=== PATIENT | male | born 1950 | race Caucasian/White ===

== ENCOUNTER → 2018-05-06 15:40 | Outpatient (CLI) | payer MEDICARE, SELFPAY ==
[2018-05-06 18:06] LABS: PSA,Total - Annual Screen 2.49 ng/mL (0.00-4.00)
== END ==
PROVIDERS: Family Provider Family Medicine; PCP Family Medicine; Visit Provider Family Medicine
DX: Z12.5 Encounter for screening for malignant neoplasm of prostate (principal)
CPT/HCPCS: 36415; 84153; G0103

== ENCOUNTER → 2019-08-10 16:14 | Outpatient (CLI) | payer MEDICARE, SELFPAY ==
[2019-08-10 17:27] LABS: Absolute Lymphocyte Count 1.09 X10^3/uL (0.83-4.51); Basophil# 0.06 X10^3/uL; Basophil% 1.1 % (0-1); Eosinophil# 0.11 X10^3/uL; Hematocrit 37.1 % (40-54); Hemoglobin 12.6 g/dL (13.0-16.5); Lymphocyte # 1.09 X10^3/ul (4.0); Lymphocyte % 19.3 % (19-41); Mean Corpuscular Hgb 31.2 pg (27.0-32.0); Mean Corpuscular Volume 91.8 fL (80-94); Mean Platelet Vol. 10.7 fl (6.2-12.0); Monocyte% 7.1 % (0-10); NRBC Flagged by Analyzer 0 % (0-5); Neutrophil # 3.95 X10^3/uL (2.7-7.7); Platelet Count 173 K/mm3 (150-450); RBC Distribution Width CV 14.4 % (11.6-14.6); RBC Distribution Width SD 48.8 fl (35.1-43.9); Red Blood Count 4.04 M/mm3 (4.6-6.2); White Blood Count 5.6 K/mm3 (4.4-11.0)
[2019-08-10 18:15] LABS: ALB/GLOB Ratio 1.1 RATIO (0.9-2.4); AST(SGOT) 18 U/L (15-37); Alanine Aminotransfer ALT/SGPT 24 U/L (16-61); Albumin, Serum 3.6 g/dL (3.2-5.0); Alkaline Phosphatase 50 U/L (45-117); Anion Gap 5 (5-15); BUN 16 mg/dL (7-18); BUN/Creat Ratio 16.7 RATIO (10-20); Calcium,Total 8.8 mg/dL (8.5-10.1); Chloride 106 mmol/L (98-107); Cholesterol 172 mg/dL (200); Creatinine, Serum 0.96 mg/dL (0.70-1.30); EST Glomerular Filtration Rate 83 mL/min (>60); Est Glom Filt Rate - Afr Amer 101 mL/min (>60); Globulin 3.4 g/dL (2.2-4.2); Glucose 79 mg/dL (74-106); High Density Lipoprotein 48 mg/dL; PSA,Total - Annual Screen 1.57 ng/mL (0.00-4.00); Potassium 3.6 mmol/L (3.5-5.1); Sodium Level 141 mmol/L (136-145); Thyroid Stim Hormone (TSH) 6.05 uIU/mL (0.358-3.74); Triglycerides 102 mg/dL; Very Low Density Lipoprotein 20 mg/dL (5-40)
== END ==
PROVIDERS: Family Provider Family Medicine; PCP Family Medicine; Referring Provider Family Medicine; Visit Provider Family Medicine
DX: Z00.00 Encounter for general adult medical examination without abnormal findings (principal); Z12.5 Encounter for screening for malignant neoplasm of prostate
CPT/HCPCS: 36415; 80053; 80061; 84153; 84443; 85025; G0103

== ENCOUNTER → 2019-08-16 15:56 | Outpatient (CLI) | payer MEDICARE, SELFPAY ==
[2019-08-16 17:44] LABS: Vitamin B12 431 pg/mL (211-911)
[2019-08-16 17:53] LABS: Ferritin 276 ng/mL (26-388); Iron 52 ug/dL (65-175); Iron Binding Capacity,Total 276 ug/dL (250-450); PERCENT IRON SATURATION 18.8 % (15.0-55.0); T4 Free Direct 0.86 ng/dL (0.76-1.46)
[2019-08-20 11:08] LABS: Anti-Thyroglobulin AB < 1.0 IU/mL (0.0-0.9); Thyroglobulin, Serum Qt. 7.6 ng/mL (1.4-29.2); Thyroid Peroxidase AB 8 IU/mL (0-34)
== END ==
PROVIDERS: Family Provider Family Medicine; PCP Family Medicine; Referring Provider Family Medicine; Visit Provider Family Medicine
DX: D64.9 Anemia, unspecified (principal); R79.89 Other specified abnormal findings of blood chemistry
CPT/HCPCS: 36415; 82607; 82728; 82746; 83540; 83550; 84432; 84439; 86376; 86800

== ENCOUNTER → 2019-10-15 09:38 | Outpatient (CLI) | payer MEDICARE, SELFPAY ==
[2019-10-15 12:08] LABS: Absolute Neutrophil Count 3.6 X10^3/uL (2.0-7.7); Basophil# 0.05 X10^3/uL; Eosinophil# 0.05 X10^3/uL; Hematocrit 38.9 % (40-54); Hemoglobin 13.1 g/dL (13.0-16.5); Mean Corp Hgb Conc 33.7 g/dL (32-36); Mean Corpuscular Hgb 31.3 pg (27.0-32.0); Mean Corpuscular Volume 92.8 fL (80-94); Mean Platelet Vol. 10.7 fl (6.2-12.0); Monocyte# 0.44 X10^3/uL; Monocyte% 8.8 % (0-10); NRBC Flagged by Analyzer 0 % (0-5); Neutrophil # 3.61 X10^3/uL (2.7-7.7); Neutrophil % 72.2 % (47-70); Platelet Count 173 K/mm3 (150-450); RBC Distribution Width CV 14.9 % (11.6-14.6); RBC Distribution Width SD 50.6 fl (35.1-43.9); Red Blood Count 4.19 M/mm3 (4.6-6.2)
[2019-10-15 12:26] LABS: Ferritin 247 ng/mL (26-388); Iron 70 ug/dL (65-175); Iron Binding Capacity,Total 269 ug/dL (250-450)
== END ==
PROVIDERS: Family Provider Family Medicine; PCP Family Medicine; Referring Provider Family Medicine; Visit Provider Family Medicine
DX: E61.1 Iron deficiency (principal)
CPT/HCPCS: 36415; 82728; 83540; 83550; 85025

== ENCOUNTER → 2020-01-04 10:17 | Outpatient (CLI) | payer MEDICARE, SELFPAY ==
[2020-01-04 12:32] LABS: Absolute Lymphocyte Count 0.69 X10^3/uL (0.83-4.51); Absolute Neutrophil Count 3.6 X10^3/uL (2.0-7.7); Basophil# 0.05 X10^3/uL; Eosinophil# 0.09 X10^3/uL; Eosinophils% 1.9 % (0-5); Hematocrit 39.2 % (40-54); Hemoglobin 13.1 g/dL (13.0-16.5); Lymphocyte # 0.69 X10^3/ul (4.0); Lymphocyte % 14.3 % (19-41); Mean Corp Hgb Conc 33.4 g/dL (32-36); Mean Corpuscular Hgb 31.6 pg (27.0-32.0); Mean Corpuscular Volume 94.7 fL (80-94); Mean Platelet Vol. 10.7 fl (6.2-12.0); Monocyte% 8.3 % (0-10); NRBC Flagged by Analyzer 0 % (0-5); Neutrophil # 3.58 X10^3/uL (2.7-7.7); Neutrophil % 73.9 % (47-70); Platelet Count 178 K/mm3 (150-450); RBC Distribution Width CV 14.7 % (11.6-14.6); Red Blood Count 4.14 M/mm3 (4.6-6.2); White Blood Count 4.8 K/mm3 (4.4-11.0)
[2020-01-04 12:50] LABS: Ferritin 255 ng/mL (26-388); Iron 87 ug/dL (65-175); Iron Binding Capacity,Total 266 ug/dL (250-450)
== END ==
PROVIDERS: PCP Family Medicine; Visit Provider Family Medicine
DX: E61.1 Iron deficiency (principal)
CPT/HCPCS: 36415; 82728; 83540; 83550; 85025

== ENCOUNTER → 2020-08-11 16:14 | Outpatient (CLI) | payer MEDICARE, SELFPAY ==
[2020-08-11 18:34] LABS: PSA,Total - Annual Screen 1.87 ng/mL (0.00-4.00)
== END ==
PROVIDERS: PCP Family Medicine; Referring Provider Family Medicine; Visit Provider Family Medicine
DX: Z12.5 Encounter for screening for malignant neoplasm of prostate (principal)
CPT/HCPCS: 36415; 84153; G0103

== ENCOUNTER → 2020-12-13 13:57 | Outpatient (CLI) | payer MEDICARE, SELFPAY | PROVIDERS: PCP Family Medicine; Referring Provider Family Medicine; Visit Provider Family Medicine | DX: R19.7 Diarrhea, unspecified (principal) | CPT/HCPCS: 87493; 87506 ==

== ENCOUNTER → 2020-12-18 11:25 | Outpatient (CLI) | payer MEDICARE, SELFPAY ==
[2020-12-18 15:20] LABS: Absolute Lymphocyte Count 1.37 X10^3/uL (0.83-4.51); Absolute Neutrophil Count 4.4 X10^3/uL (2.0-7.7); Basophil# 0.11 X10^3/uL; Basophil% 1.7 % (0-1); Eosinophil# 0.03 X10^3/uL; Eosinophils% 0.5 % (0-5); Hematocrit 38.8 % (40-54); Hemoglobin 13.3 g/dL (13.0-16.5); Lymphocyte # 1.37 X10^3/ul (4.0); Lymphocyte % 21.3 % (19-41); Mean Corp Hgb Conc 34.3 g/dL (32-36); Mean Corpuscular Hgb 32.4 pg (27.0-32.0); Mean Corpuscular Volume 94.6 fL (80-94); Mean Platelet Vol. 10.8 fl (6.2-12.0); Monocyte# 0.45 X10^3/uL; NRBC Flagged by Analyzer 0 % (0-5); Neutrophil # 4.37 X10^3/uL (2.7-7.7); Neutrophil % 67.8 % (47-70); POSITIVE MORPHOLOGY YES; Platelet Count 193 K/mm3 (150-450); White Blood Count 6.4 K/mm3 (4.4-11.0)
[2020-12-18 15:24] LABS: Differential Indicated SCAN CRITERIA MET
[2020-12-18 16:01] LABS: Anion Gap 6 (5-15); BUN 17 mg/dL (7-18); BUN/Creat Ratio 18.3 RATIO (10-20); Calcium,Total 9.5 mg/dL (8.5-10.1); Chloride 104 mmol/L (98-107); Creatinine, Serum 0.93 mg/dL (0.70-1.30); EST Glomerular Filtration Rate 86 mL/min (>60); Est Glom Filt Rate - Afr Amer 104 mL/min (>60); Glucose 85 mg/dL (74-106); Potassium 3.6 mmol/L (3.5-5.1); Sodium Level 140 mmol/L (136-145)
[2020-12-18 16:05] LABS: Differential Comment SCANNED
== END ==
PROVIDERS: PCP Family Medicine; Referring Provider Family Medicine; Visit Provider Family Medicine
DX: R53.83 Other fatigue (principal)
CPT/HCPCS: 36415; 80048; 84403; 84443; 85025

== ENCOUNTER → 2021-01-24 12:44 | Outpatient (CLI) | payer MEDICARE, SELFPAY ==
--- NOTE | 2021-01-24 13:47 | SP.MBSS_ITS ---
Modified Barium Swallow - Patient Information Study Date: 01/24/21 Study Time: 13:00 Direct Billable Minutes: 120 Total Minutes procedure & reportin Diagnosis: dysphagia, unspecified (R13.10) Referring Physician: Marshall Herzog Reason for Referral: Patient reports symptoms of food, particularly meat, getting stuck past the point of airway but causing discomfort. Patient also reports a wet, garbled vocal quality following meals. Medical History: Patient is a 70/m with no significant medical history other than previous colonoscopies and investigation into IBS. No recent pneumonia reported. Current Diet Ordered: regular textures/thin liquids Dentition: Natural Teeth Mental Status: WNL Respiratory Status: Oxygenating on Room Air - Study Findings Consistencies: Thin Liquid, Elba Thick Liquid, Honey Thick Liquid, Pudding, Cookie - Penetration-Aspiration Scale Penetration-Aspiration Scale: OBJECTIVE ASSESSMENT OF SWALLOW FUNCTION (QUANTITATIVE ? PER TRIAL): PENETRATION / ASPIRATION SCALE ([place]): 1 = does not enter airway 2 = enters airway/above vocal folds/ejected 3 = enters airway/above vocal folds/not ejected 4 = enters airway/contacts vocal folds/ejected 5 = enters airway/contacts vocal folds/not ejected 6 = enters airway/below vocal folds/ejected 7 = enters airway/below vocal folds/not ejected despite effort 8 = enters airway/below vocal folds/no effort - Penetration-Aspiration Scale Score Thin Liquid via teaspoon Result: 1= does not enter airway Thin Liquid via teaspoon Trial 2 Result: 1= does not enter airway Thin Liquid via small single sip from cup Result: 1= does not enter airway Thin Liquid via large single sip from cup Result: 1= does not enter airway Thin Liquid via sequential sips from cup Result: 2= enter airway/above vocal folds/ejected Elba Thick Liquid via large single sip from cup Result: 1= does not enter airway Honey Thick Liquid via large single sip from cup Result: 1= does not enter airway Pudding Result: 1= does not enter airway Cookie Result: 1= does not enter airway Thin Liquid via sequential sips from straw Result: 1= does not enter airway - Oral Phase Labial Seal: No Labial Escape Tongue Control During Bolus Hold: Cohesive bolus between tongue to palatal seal Bolus Preparation/Mastication: Timely and efficient chewing and mashing Bolus Transport/Lingual Motion: Brisk tongue motion Oral Residue: Trace residue lining oral structures - Pharyngeal Phase Initiation of Pharyngeal Swallow: Bolus head at posterior angle of ramus at first hyoid excursion Soft Palate Elevation: No bolus between soft palate and pharyngeal wall Laryngeal Elevation: Partial superior movement thyroid cart/partial apprx aryt- epig petiole Anterior Hyoid Excursion: Partial anterior movement Epiglottic Movement: Partial inversion Laryngeal Vestibule Closure at Height of Swallow: Incomplete; narrow column of air/contrast in laryngeal vestibule Pharyngeal Stripping Wave: Present - complete Pharyngoesophageal Segment Opening: Parital distension and partial duration; parital obstruction of flow Tongue Base Retraction: No contrast between tongue base and posterior pharyngeal wall Pharyngeal Residue: Trace residue within or on pharyngeal structures - Esophageal Phase Esophageal Clearance: Esophageal retention w/ retrograde flow through pharyngoesophageal seg - diverticulum-like pouch present just below PES - Diagnosis/Impression Diagnosis: mild pharyngoesophageal dysphagia Impression: The patient was evaluated this date d/t complaints of food, particularly meat getting stuck past the point of airway.The patient trialed thin liquid barium with no aspiration found. The patient did have trace penetration of thin liquids when taking sequential sips from cup however liquid was above vocal cords and was ejected. The patient trialed solid Bruna Doone shortbread cookie with effective mastication. Upon deglutition, it was noted that patient had reflux of cookie mixed with liquids up through PES from diverticulum-like pouch just below PES. It is advised that patient follow up with ENT for further medical work-up of pouch-like presence for evaluation and to determine treatment plan. - Recommendations Diet: Thin Liquids Comment: soft and bite sized textures no bigger than thumbnail size pieces; consider adding sauce/condiments to meats Compensatory Strategies: Small Bites, Small Sips, Slow Rate, Alternate bites/solids and sips/liquids, Sitting upright, Remain sitting upright for 30 minutes after PO intake, Minimize/decrease distractions Recommend Repeat Modified Barium Swallow: No Need for Skilled Speech Therapy Services: No Recommended Referrals: ENT Consult - Due to diverticulum-like pouch just below PES, it is advised that pt seek further medical evaluation for course of action in treatment. Education Completed: 1. Described result of evaluation., 2. Pt understands evaluation & agrees with goals and treatment plan. - Status Active ST Patient: Active - Contact Information [facility] Speech Therapy:: Rianna Montes MA, CCC-ZIGZAG TUNNEL ELASTIC OPERATOR [address] [address] [email or web address]
== END ==
PROVIDERS: PCP Family Medicine; Referring Provider Family Medicine; Visit Provider Family Medicine
DX: R13.10 Dysphagia, unspecified (principal)
CPT/HCPCS: 74230; 92611

== ENCOUNTER → 2021-02-14 14:21 | Outpatient (CLI) | payer MEDICARE, SELFPAY ==
[2021-02-14 18:42] LABS: Thyroid Stim Hormone (TSH) 2.69 uIU/mL (0.358-3.74)
== END ==
PROVIDERS: PCP Family Medicine; Referring Provider Family Medicine; Visit Provider Family Medicine
DX: R53.83 Other fatigue (principal)
CPT/HCPCS: 36415; 84443; 84481

== ENCOUNTER → 2021-09-19 08:20 | Outpatient (CLI) | payer MEDICARE, SELFPAY ==
[2021-09-19 10:15] LABS: Absolute Lymphocyte Count 0.76 X10^3/uL (0.83-4.51); Absolute Neutrophil Count 3.2 X10^3/uL (2.0-7.7); Basophil# 0.05 X10^3/uL; Basophil% 1.1 % (0-1); Eosinophil# 0.07 X10^3/uL; Eosinophils% 1.5 % (0-5); Hematocrit 39.5 % (40-54); Hemoglobin 13.1 g/dL (13.0-16.5); Lymphocyte # 0.76 X10^3/ul (0.83-4.51); Lymphocyte % 16.7 % (19-41); Mean Corp Hgb Conc 33.2 g/dL (32-36); Mean Corpuscular Volume 93.6 fL (80-94); Mean Platelet Vol. 10.8 fl (6.2-12.0); Monocyte# 0.43 X10^3/uL; Monocyte% 9.4 % (0-10); NRBC Flagged by Analyzer 0 % (0-5); Neutrophil % 70.2 % (47-70); Platelet Count 175 K/mm3 (150-450); RBC Distribution Width CV 14.8 % (11.6-14.6); Red Blood Count 4.22 M/mm3 (4.6-6.2); White Blood Count 4.6 K/mm3 (4.4-11.0)
[2021-09-19 10:29] LABS: Vitamin B12 484 pg/mL (211-911)
[2021-09-19 10:42] LABS: AST(SGOT) 19 U/L (15-37); Alanine Aminotransfer ALT/SGPT 25 U/L (16-61); Albumin, Serum 3.5 g/dL (3.2-5.0); Alkaline Phosphatase 48 U/L (45-117); Anion Gap 2 (5-15); BUN 20 mg/dL (7-18); BUN/Creat Ratio 19.8 RATIO (10-20); Calcium,Total 9.2 mg/dL (8.5-10.1); Chloride 104 mmol/L (98-107); Cholesterol 168 mg/dL (200); Creatinine, Serum 1.01 mg/dL (0.70-1.30); EST Glomerular Filtration Rate 78 mL/min (>60); Est Glom Filt Rate - Afr Amer 94 mL/min (>60); Ferritin 312 ng/mL (26-388); Globulin 3.5 g/dL (2.2-4.2); Glucose 102 mg/dL (74-106); High Density Lipoprotein 54 mg/dL; Iron 69 ug/dL (65-175); Iron Binding Capacity,Total 279 ug/dL (250-450); Potassium 3.8 mmol/L (3.5-5.1); Sodium Level 139 mmol/L (136-145); T4 Free Direct 0.84 ng/dL (0.76-1.46); Thyroid Stim Hormone (TSH) 3.72 uIU/mL (0.358-3.74); Triglycerides 81 mg/dL; Very Low Density Lipoprotein 16 mg/dL (5-40)
== END ==
PROVIDERS: PCP Family Medicine; Referring Provider Family Medicine; Visit Provider Family Medicine
DX: D64.9 Anemia, unspecified (principal); R79.89 Other specified abnormal findings of blood chemistry; Z12.5 Encounter for screening for malignant neoplasm of prostate
CPT/HCPCS: 36415; 80053; 80061; 82607; 82728; 82746; 83540; 83550; 84153; 84439; 84443; 85025; G0103

== ENCOUNTER → 2022-04-19 | Outpatient (CLI) | payer MEDICARE, SELFPAY ==
--- NOTE | 2022-04-19 11:15 | US_ITS ---
STUDY: ULTRASOUND - URINARY BLADDER REASON FOR EXAM: Male, 72 years old. Urinary retention. TECHNIQUE: Ultrasound evaluation of the urinary bladder was performed with real-time and static deleon-scale imaging. COMPARISON: None. FINDINGS: There is no right UVJ calculus. There is a visualized right ureteral jet. There is no left UVJ calculus. The distended volume of the urinary bladder is 1058 ml. The empty volume of the urinary bladder is 845 ml. The bladder wall is within normal limits. The bladder wall measures 3 mm. Bladder trabeculation. There are no demonstrated bladder calculi. US/Post Void Residual Bladder IMPRESSION: Large post void residual. Bladder trabeculations. Electronically Signed: Perry Xiao MD at 12:33 EDT ,
== END | disposition home or self-care (01) ==
LOC: US 11:14
PROVIDERS: PCP Family Medicine; Referring Provider Family Medicine; Visit Provider Family Medicine
DX: R33.9 Retention of urine, unspecified (principal)
CPT/HCPCS: 51798

== ENCOUNTER → 2022-08-19 | Outpatient (CLI) | payer MEDICARE, SELFPAY | END | disposition home or self-care (01) | LOC: LABSPEC 16:29 | PROVIDERS: PCP Family Medicine; Visit Provider Urology | DX: N40.1 Benign prostatic hyperplasia with lower urinary tract symptoms (principal) | CPT/HCPCS: 87086 ==

== ENCOUNTER 2022-08-28 15:59 | Observation (INO) | payer MEDICARE, SELFPAY ==
[2022-08-28] VITALS (11 sets, daily range): BP systolic 110–140; BP diastolic 58–82; PULSE 55–74; RESP 16–18; TEMP 36.5–37.1; O2SAT 97–100; BMI 21.4
[2022-08-28] MEDS: Lactated Ringers 1,000 ML 15 ML IV (10:24)
--- NOTE | 2022-08-28 11:55 | PROS_PTH ---
PATIENT: JUAN JOSE BLACKWOOD LOC: MS3 U#:[id number] AGE/SX: 72/M ROOM: [facility] [place] RE08/28/[address]: Dr. Otoniel Pulido MD : 1950 BED: 1 DIS: 08/29/2022 SPEC #: [id number] RECD: 08/29/22 08:12 STATUS: CUONG HUITRON #: [id number] ANDREY: 08/28/22 11:[address]: Otoniel Pulido DEPT: SURGICAL PATHOLOGY RECD BY: Torsten Hernadez ENTERED: 08/29/22 10:57 SP TYPE: TURP OTHR DR: Dr. Marshall Herzog MD Tissues: Prostate, NOS Procedures: Surgery Specimen Level IV HEADER OPERATION: Cysto, TUR prostate, Olympus PRE-OP DIAGNOSIS: BPH with obstruction, urine retention TISSUE SUBMITTED: Prostate tissue MICROSCOPIC DIAGNOSIS Prostate, transurethral resection: Benign nodular hyperplasia, glandular and stromal types. Chronic inflammation. AM:clyde 08/30/2022 MICROSCOPIC DESCRIPTION Slides are reviewed. GROSS DESCRIPTION Received is one container labeled with the patient's name and designated prostate tissue. The specimen consists of multiple irregular fragments of pink-sher, rubbery, soft tissue that in aggregate weigh 20.2 gm and measure in aggregate 6 x 6 x 1 cm. Cognos Administrator portions are submitted in ten cassettes. / AM:clyde 08/29/2022 TC:5 CPT: 83131
[2022-08-28] MEDS: 0.9% Normal Saline 1,000 ML 125 ML IV ×2 (13:10→23:07)
--- NOTE | 2022-08-28 13:11 | PCM.HP.STD ---
HPI - General HPI Narrative JUAN JOSE BLACKWOOD, is a 72 M who presents for a TURP for BPH with obstruction PFSH Medical History (Updated 08/21/22 @ 15:02 by Tiffanie Mcintosh) Non-smoker Prostate disease Seasonal allergies Wears glasses Home Medications ciprofloxacin HCl 500 mg tablet (Cipro) 500 mg PO BID #10 tabs 08/28/22 [Rx Last Taken Unknown] Allergy/AdvReac Type Severity Reaction Status Date / Time No Known Allergies Allergy Verified 08/28/22 10:19 Surgical History (Updated 08/21/22 @ 15:02 by Tiffanie Mcintosh) Hx of colonoscopy Social History Smoking Status: Never smoker Vital Signs Vital Signs Vital Signs: 08/28/22 10:19 08/28/22 10:19 Temperature 98.7 F Temperature Source Temporal Pulse Rate 63 Respiratory Rate 16 Respiratory Pattern Normal Blood Pressure 140/71 H Blood Pressure Mean 94 Blood Pressure Source Monitor Blood Pressure Position Semi-Fowlers Blood Pressure Location Left Arm Pulse Ox 100 Oxygen Delivery Method Room Air Weight Weight: 62 kg Body Mass Index (BMI) 21.4
--- NOTE | 2022-08-28 13:12 | DCINST_ITS ---
Discharge Instructions Diet Discharge Diet: No restrictions, Light diet - advance as tolerated and Soft diet Activity Discharge Activity: Return to Normal Activity and May Shower Dressing / Incision Call your doctor if your incision/area has: Sudden Increased Bleeding Follow Up Care Please Follow Up With: Otoniel Pulido MD When: Call for an appointment Test Results: Test results from this visit will be discussed in further detail at your follow- up appointment, if applicable. Discharge Plan Admission Primary Reason for Your Visit: turp Attending Provider: Otoniel Pulido Primary Care Provider: Marshall Herzog Instructions Patient Instructions: [facility] Home Recovery Discharge Orders/Prescriptions Prescriptions: New ciprofloxacin HCl [Cipro] 500 mg tablet 500 mg PO BID Qty: 10 0RF Discontinued tamsulosin 0.4 mg capsule 0.4 mg PO DAILY Label Comments: TAKE 1 CAPSULE BY MOUTH EVERY DAY finasteride [Proscar] 5 mg tablet 5 mg PO DAILY Label Comments: TAKE 1 TABLET BY MOUTH EVERY DAY Referrals / Follow Up: Otoniel Pulido MD [Med Staff - Active Staff] - Marshall Herzog MD [Primary Care Provider] - Disposition Disposition (needs filled in before D/C Order can be placed): Home, Self Care
[2022-08-28] MEDS: Cefazolin 2 GM in 0.9% Normal Saline 100 ML IV (13:27)
--- NOTE | 2022-08-28 14:15 | OP.PCM_ITS ---
Report of Operation Date of Procedure: 08/28/22 Pre-Operative Diagnosis: bph with obstruction Post-Operative Diagnosis: same Surgery/Procedure Performed:: turp Description of Surgical Findings:: In the preoperative setting I discussed with the patient how the surgery would be done with expect afterwards. We discussed how a prostate resection is done and we discussed the risk of the surgery including, bleeding, infection, retrograde ejaculation, changes with ejaculation or intercourse,. We discussed the possibility that the resection of the prostate may not alleviate his urinary symptoms. We discussed the small risk of developing scar tissue along the urethral channel and strictures. We also discussed the chance of the prostate could grow back and he may need further surgery or treatment in the future for prostate problems. Patient was taken back to the operating room, timeout procedure was performed, he was identified and marked and placed on the operating room table. He underwent general anesthesia. He was placed in dorsolithotomy position. Penis and testicles were prepped and draped in usual sterile fashion. Went into the bladder using the visual obturator with a resectoscope. Once inside the bladder identified the right and left ureteral orifice. He had a very distended stretched out bladder with over 800 cc in the bladder very hypotonic looking bladder he understands that TURP may not work and may need to do self intermittent catheterization. I then proceeded with the surgery. I then identified the prostate and the anatomy of the prostate. I marked out the area of the sphincter and the verumontanum was identified. I then proceeded with the prostate resection first resected the median lobe. And then resected the right lobe of the prostate. Then to resect the left lobe of the prostate. I then resected the apical tissue of the prostate. This was a complete resection of all obstructive tissue to improve voiding and relieve obstruction. I then made sure that there was no injury to the sphincter or the verumontanum was still intact. At the end of the resection all the chips were Ellik out of the bladder. I then identified the left and right ureteral orifice and these were confirmed to be in good position and effluxing and not injured. The resectoscope was removed, a 22 Icelandic catheter was placed into the bladder on continuous irrigation. And the urine was fairly light pink color and draining normally. He was taken back to the PACU in good condition. Surgeon: Otoniel Pulido Type of Anesthesia: General Drains: 22fr [address] way menjivar Admit VTE Documentation VTE Present on Admission: No VTE Mechan Device Prophylaxis: SCD's VTE Pharm Prophylaxis ordered?: No
[2022-08-28] MEDS: Docusate Sodium 100 MG Capsule 200 MG PO (23:05)
[2022-08-28] MEDS: Ciprofloxacin 400 MG/200 ML BAG 200 MG IV (23:05)
[2022-08-29 03:46] VITALS: BP 112/52; PULSE 62; RESP 16; TEMP 36.6; O2SAT 97
[2022-08-29 03:48] VITALS: BP 112/52; PULSE 62; RESP 16; TEMP 36.6; O2SAT 97
[2022-08-29] MEDS: 0.9% Normal Saline 1,000 ML 125 ML IV (06:18)
[2022-08-29 07:41] VITALS: BP 117/57; PULSE 64; RESP 18; TEMP 36.8; O2SAT 97
--- NOTE | 2022-08-29 07:47 | PCM.PN.GU ---
Subjective Subjective Status post TURP urine is fairly clear DC Jones at home after he can void. Objective Data Objective Data Vital Signs: Vital Signs Temp Pulse Resp BP Pulse Ox O2 Del Method 98.2 F 64 18 117/57 L 97 Room Air 08/29/22 07:41 08/29/22 07:41 08/29/22 07:41 08/29/22 07:41 08/29/22 07:41 08/29/22 07:41 Oxygen Delivery Method Room Air Weight: 62 kg Body Mass Index (BMI) 21.4 Intake & Output: Intake and Output for Last 24 Hours 08/27/22 08/28/22 08/29/22 23:59 23:59 23:59 Intake Total 2110 / 2110 1097.92 / 1097.92 Output Total 4400 / 4400 1450 / 1450 Balance -2290 / -2290 -352.08 / -352.08
[2022-08-29] MEDS: Ciprofloxacin 400 MG/200 ML BAG 200 MG IV (10:01)
[2022-08-29] MEDS: Docusate Sodium 100 MG Capsule 200 MG PO (10:02)
== END 2022-08-29 11:29 | disposition home or self-care (01) ==
LOC: MS3 16:05
PROVIDERS: Admitting Provider Urology; PCP Family Medicine; Referring Provider Urology; Visit Provider Urology
PROC: (CPT 52601; principal; 2022-08-28 11:45)
DX: N40.1 Benign prostatic hyperplasia with lower urinary tract symptoms (principal); R33.8 Other retention of urine; R39.14 Feeling of incomplete bladder emptying; R35.0 Frequency of micturition
CPT/HCPCS: 52601; 00914; 88305; 93005; 96361; 96365; 96366; 99218; J7030; J7120; G0378; J0744; J2405

== ENCOUNTER 2023-02-23 07:30 | Emergency (ER) | payer MEDICARE, SELFPAY ==
[2023-02-23 07:31] VITALS: BP 109/76; PULSE 128; RESP 16; TEMP 36.4; O2SAT 97; BMI 21.1
--- NOTE | 2023-02-23 07:44 | EX.ED.DYSGE1 ---
HPI History of Present Illness Chief Complaint: Rash Detail of Chief Complaint: Rash Informant: patient Narrative Narrative: Patient presents with a rash that started yesterday. He took some Benadryl and seemed to improve with that. This morning he noticed the rash, diffusely. Does itch. Denies any new soaps or detergents or allergens. No new medications. Patient had COVID 3 weeks ago and had somewhat similar rash for a day or 2 and then it resolved. Denies fever or recent illness. PFSH PFS Medical History (Updated 02/23/23 @ 07:[address] Bijal Gonzales, DO) Non-smoker Prostate disease Seasonal allergies Wears glasses Home Medications prednisone 20 mg tablet 20 mg PO BID #10 tabs 02/23/23 [Rx Last Taken Unknown] Allergy/AdvReac Type Severity Reaction Status Date / Time No Known Allergies Allergy Verified 02/23/23 07:34 Surgical History (Updated 08/21/22 @ 15:02 by Tiffanie Mcintosh) Hx of colonoscopy Social History Smoking Status: Never smoker ROS ROS ED Review of Systems ROS Unobtainable: other Constitutional Constitutional ED: Reports lethargy; Denies chills, fever(s), sweats or weight loss Eyes Eyes: Denies blurry vision, change in vision or diplopia ENT ENT ED: Denies rhinorrhea or sore throat Cardiovascular Cardiovascular: Denies chest pain, orthopnea or racing heartbeat Respiratory/Chest Respiratory/Chest: Denies cough, dyspnea, dyspnea on exertion, orthopnea or sputum Gastrointestinal Gastrointestinal: Denies abdominal pain, diarrhea, nausea or vomiting Genitourinary Genitourinary ED: Denies dysuria, hematuria or urinary frequency Musculoskeletal Musculoskeletal: Denies arthralgias, back pain, myalgias or neck pain Integumentary Reports rash; Denies abscess or Abrasions Neurologic Neurologic: Denies headache(s) or weakness Psychiatric Psychiatric: Denies anxiety, depression or suicidal thoughts Endocrine Endocrinology: Denies polydipsia, polyphagia or polyuria Hematologic/Lymphatic Hematologic/Lymphatic: Denies easy bleeding, easy bruising or lymphadenopathy Allergic/Immunologic Allergic/Immunologic ED: Denies mouth swelling, tongue swelling or urticaria EXAM Physical Exam Const Vital Signs: 02/23/23 07:31 Temperature 97.6 F L Temperature Source Temporal Pulse Rate 128 H Respiratory Rate 16 Blood Pressure 109/76 Blood Pressure Mean 87 Pulse Ox 97 Oxygen Delivery Method Room Air Positive well nourished and well developed General Appearance ED: well developed and NAD HEENT Reports TM's clear and moist mucous membranes normocephalic and atraumatic; Negative for trauma or tenderness Tympanic Membrane ED: Yes TM's clear Eyes PERRL and EOMs intact bilaterally General Eye ED: Negative for pale conjunctiva or scleral icterus Neck no lymphadenopathy, supple and no JVD General: Negative for tenderness Chest Wall inspection of chest normal and palpation of chest normal Chest: Negative for tenderness Resp normal respiratory effort and clear to auscultation bilaterally Effort and Inspection: Negative for respiratory distress or pain with movement Auscultation: Negative for rhonchi, wheezes or diminished lung sounds Cardio regular rate, regular rhythm, S1 normal heart sound, S2 normal heart sound and no murmurs Peripheral Pulses: pulses 2+ throughout GI normal to inspection, nondistended, normoactive bowel sounds, soft to palpation, non-tender, non-distended and no masses Back/Spine no CVA tenderness and no thoracic nor lumbar tenderness Extremity normal to inspection General Extremety ED: Negative for edema General Extremity: Negative for edema Neuro oriented x3, CN's II-XII intact bilaterally, no sensory deficits noted and gait normal Sensorium / Orientation: awake, alert, oriented to person, oriented to place and oriented to time Motor Exam: strength 5/5 throughout and strength abnormal Psych mental status grossly normal Skin no wounds Skin Narrative: Patient has a diffuse erythematous rash that slightly raised suspicious for hives. No vesicles or petechiae noted. MDM MDM MDM Narrative Medical decision making narrative: I suspect urticaria. Etiology unclear. Patient will be started on prednisone. He is to continue with Benadryl for itching. He is to follow-up with his primary care physician 5 to 7 days. Discharge Plan Triage Chief Complaint: Rash ED Provider: Bijal Gonzales Dx/Rx/DC Orders Clinical Impression: Rash, Urticaria Instructions: ED Hives (Adult) Prescriptions: New prednisone 20 mg tablet 20 mg PO BID Qty: 10 0RF Primary Care Provider: Marshall Herzog Referrals: Marshall Herzog MD [Primary Care Provider] - 5-7 Days Disposition Disposition: Home, Self Care
[2023-02-23] MEDS: predniSONE 20 MG Tablet 40 MG PO (07:54)
== END 2023-02-23 08:03 | disposition home or self-care (01) ==
LOC: ED 07:49
PROVIDERS: Emergency Provider Emergency Medicine; PCP Family Medicine; Visit Provider Emergency Medicine
DX: L50.9 Urticaria, unspecified (principal); Z86.16 Personal history of COVID-19
CPT/HCPCS: 99283

== ENCOUNTER → 2024-02-02 | Outpatient (CLI) | payer MEDICARE, SELFPAY ==
--- NOTE | 2024-02-02 13:48 | SP.MBSS_ITS ---
Modified Barium Swallow Patient Information Study Date: 02/02/24 Study Time: 13:00 Direct Billable Minutes: 121 Total Minutes procedure & reportin Diagnosis: Dysphagia R13.10 Referring Physician: Marshall Herzog Reason for Referral: Objectively assess swallow function, assess risk for aspiration, and determine recommendations for least restrictive diet textures and compensatory strategies to improve safety of swallow. Medical History: The patient reported history of diverticulum in his esophagus with no past surgical intervention. He has followed with an ENT regarding the diverticulum and seasonal allergies. He reports worsening swallowing difficulty and sensation of phlegm in his throat since October of 2023, as well as increased coughing noticed especially after he eats. He was referred for MBSS to assess swallow function and aspiration risk. Current Diet Ordered: Regular textures / Thin liquids Dentition: WNL Mental Status: WNL Respiratory Status: Oxygenating on Room Air Penetration-Aspiration Scale Penetration-Aspiration Scale: OBJECTIVE ASSESSMENT OF SWALLOW FUNCTION (QUANTITATIVE ? PER TRIAL): PENETRATION / ASPIRATION SCALE ([place]): 1 = does not enter airway 2 = enters airway/above vocal folds/ejected 3 = enters airway/above vocal folds/not ejected 4 = enters airway/contacts vocal folds/ejected 5 = enters airway/contacts vocal folds/not ejected 6 = enters airway/below vocal folds/ejected 7 = enters airway/below vocal folds/not ejected despite effort 8 = enters airway/below vocal folds/no effort VIDEOFLOROSCOPIC SCALE SCORE ([place]OOK): Grade I = aspiration of material that has penetrated into the laryngeal vestibule, intact cough reflex Grade II = aspiration < 10 % of the bolus, intact cough reflex Grade III = aspiration of < 10 % of the bolus, reduced cough reflex or aspiration of > 10 % of the bolus, intact cough reflex Grade IV = aspiration of > 10 % of the bolus, reduced cough reflex Penetration-Aspiration Scale Score Thin Liquid via teaspoon: Result: 1= does not enter airway Thin Liquid via large single sip: cup: Result: 5= enters airways/contacts vocal folds/not ejected Comment: Esophageal screen Pudding via teaspoon: Result: 1= does not enter airway Comment: Esophageal screen Thin Liquid via single sip: straw: Result: 8= enters airway/below vocal folds/no effort (large sip) Comment: Esophageal screen Thin Liquid via small single sip: cup: Result: 1= does not enter airway Thin Liquid via large single sip: cup Effortful swallow: Result: 1= does not enter airway Oral Phase Labial Seal: No Labial Escape Tongue Control During Bolus Hold: Posterior escape of greater than half of bolus Bolus Preparation/Mastication: Timely and efficient chewing and mashing Bolus Transport/Lingual Motion: Brisk tongue motion Oral Residue: Residue collection on oral structures Pharyngeal Phase Initiation of Pharyngeal Swallow: Bolus head in pyriforms Soft Palate Elevation: Trace column of contrast/air between soft palate and pharyngeal wall Laryngeal Elevation: Partial superior movement thyroid cart/partial apprx aryt- epig petiole Anterior Hyoid Excursion: Partial anterior movement Epiglottic Movement: Complete inversion Laryngeal Vestibule Closure at Height of Swallow: Incomplete; narrow column of air/contrast in laryngeal vestibule Pharyngeal Stripping Wave: Present - diminished Pharyngoesophageal Segment Opening: Parital distension and partial duration; parital obstruction of flow Tongue Base Retraction: Narrow column of contrast between tongue base & post. pharyngeal wall Pharyngeal Residue: Collection of residue within or on pharyngeal structures Esophageal Phase Esophageal Clearance: Esophageal retention w/ retrograde flow through pharyngoesophageal seg Diagnosis/Impression Diagnosis: Pharyngoesophageal dysphagia R13.14 Impression: The oral phase is primarily marked by... -Decreased bolus control with >1/2 of the bolus spilling posteriorly to the pyriforms prior to swallow onset. -Collection of oral residue after the swallow, which was seen spilling to the laryngeal vestibule on a subsequent swallow with thin liquids via straw and resulted in SILENT aspiration. The pharyngeal phase is primarily marked by... -Decreased airway closure during the swallow due to partial anterior hyoid excursion and decreased laryngeal elevation. -Decreased tongue base retraction, decreased UES opening/duration, and diminished pharyngeal stripping wave with resulting mild pharyngeal residues after the swallow. -SILENT aspiration of thin liquids by straw. Laryngeal penetration observed with a large single sip of thin liquids by cup, which did not reliably eject from the laryngeal vestibule after the swallow. Use of effortful swallow with large sips was most effective in decreasing aspiration during the swallow. Use of small sips was effective in decreasing risk for aspiration. The esophageal phase is primarily marked by... -Large pouch-like collection of barium found throughout the study (esophageal screens of thin, pudding, and cookie) in the upper esophagus. Upon review of images with radiologist, Dr. 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 -Retrograde flow of contrast seen flowing through the upper esophageal sphincter and into the pharynx. Figure 1. Esophageal screen of pudding revealing large Zenker's diverticulum. Recommendations Diet: Regular Textures (Easy to Chew textures - IDDSI Level 7) and Thin Liquids Comment: Extra sauce/gravy Compensatory Strategies: Small Bites, Small Sips (If patient does consume a large sip, use an effortful swallow), Slow Rate, Alternate bites/solids and sips/liquids (1:1 ratio), Sitting upright and Remain sitting upright for 30 minutes after PO intake (60 min after a meal) Recommend Repeat Modified Barium Swallow: TBD Need for Skilled Speech Therapy Services: Yes Comment: -Train the patient in use of strategies to decrease risk for aspiration. -Ongoing assessment of diet tolerance of recommended textures. -Train the patient oropharyngeal exercise program to improve airway closure and swallow onset (Effortful breath hold and re-swallow, DONNELL Jackson). Recommended Referrals: ENT Consult (Recommend ENT as soon as possible to address large Zenker's diverticulum) Education Completed: 1. Described result of evaluation. and 2. Pt understands evaluation & agrees with goals and treatment plan. Status Active ST Patient: Active Contact Information [facility] Speech Therapy:: Aracelis Barboza M.A. [facility]-MANUFACTURING EXECUTIVE? Speech-Language Pathologist?? [id number]?? [place] [address]?? [email or web address]?? [phone]??
== END | disposition home or self-care (01) ==
LOC: RAD 12:50
PROVIDERS: PCP Family Medicine; Referring Provider Family Medicine; Visit Provider Family Medicine
DX: R13.14 Dysphagia, pharyngoesophageal phase (principal)
CPT/HCPCS: 74230; 92611

== ENCOUNTER 2024-03-04 15:00 | Outpatient (RCR) | payer MEDICARE, SELFPAY ==
--- NOTE | 2024-02-19 19:37 | ST ---
[facility] Speech Pathology [address] [place] [address] Modified Barium Swallow Study MR#: [id number] Acct: [id number] Name: JUAN JOSE BLACKWOOD Rep #: [id number] : [id number] 73 From: Aracelis Barboza M.A., [facility]-MACHINE BANDER AND CELLOPHANER Modified Barium Swallow Patient Information Study Date: 02/02/24 Study Time: 13:00 Direct Billable Minutes: 121 Total Minutes procedure & reportin Diagnosis: Dysphagia R13.10 Referring Physician: Marshall Herzog Reason for Referral: Objectively assess swallow function, assess risk for aspiration, and determine recommendations for least restrictive diet textures and compensatory strategies to improve safety of swallow. Medical History: The patient reported history of diverticulum in his esophagus with no past surgical intervention. He has followed with an ENT regarding the diverticulum and seasonal allergies. He reports worsening swallowing difficulty and sensation of phlegm in his throat since October of 2023, as well as increased coughing noticed especially after he eats. He was referred for MBSS to assess swallow function and aspiration risk. Current Diet Ordered: Regular textures / Thin liquids Dentition: WNL Mental Status: WNL Respiratory Status: Oxygenating on Room Air Penetration-Aspiration Scale Penetration-Aspiration Scale: OBJECTIVE ASSESSMENT OF SWALLOW FUNCTION (QUANTITATIVE ? PER TRIAL): PENETRATION / ASPIRATION SCALE ([place]): 1 = does not enter airway 2 = enters airway/above vocal folds/ejected 3 = enters airway/above vocal folds/not ejected 4 = enters airway/contacts vocal folds/ejected 5 = enters airway/contacts vocal folds/not ejected 6 = enters airway/below vocal folds/ejected 7 = enters airway/below vocal folds/not ejected despite effort 8 = enters airway/below vocal folds/no effort VIDEOFLOROSCOPIC SCALE SCORE ([place]): Grade I = aspiration of material that has penetrated into the laryngeal vestibule, intact cough reflex Grade II = aspiration < 10 % of the bolus, intact cough reflex Grade III = aspiration of < 10 % of the bolus, reduced cough reflex or aspiration of > 10 % of the bolus, intact cough reflex Grade IV = aspiration of > 10 % of the bolus, reduced cough reflexPenetration-Aspiration Scale Score Thin Liquid via teaspoon: Result: 1= does not enter airway Thin Liquid via large single sip: cup: Result: 5= enters airways/contacts vocal folds/not ejected Comment: Esophageal screen Pudding via teaspoon: Result: 1= does not enter airway Comment: Esophageal screen Thin Liquid via single sip: straw: Result: 8= enters airway/below vocal folds/no effort (large sip) Comment: Esophageal screen Thin Liquid via small single sip: cup: Result: 1= does not enter airway Thin Liquid via large single sip: cup Effortful swallow: Result: 1= does not enter airway Oral Phase Labial Seal: No Labial Escape Tongue Control During Bolus Hold: Posterior escape of greater than half of bolus Bolus Preparation/Mastication: Timely and efficient chewing and mashing Bolus Transport/Lingual Motion: Brisk tongue motion Oral Residue: Residue collection on oral structures Pharyngeal Phase Initiation of Pharyngeal Swallow: Bolus head in pyriforms Soft Palate Elevation: Trace column of contrast/air between soft palate and pharyngeal wall Laryngeal Elevation: Partial superior movement thyroid cart/partial apprx aryt-epig petiole Anterior Hyoid Excursion: Partial anterior movement Epiglottic Movement: Complete inversion Laryngeal Vestibule Closure at Height of Swallow: Incomplete; narrow column of air/contrast in laryngeal vestibule Pharyngeal Stripping Wave: Present - diminished Pharyngoesophageal Segment Opening: Parital distension and partial duration; parital obstruction of flow Tongue Base Retraction: Narrow column of contrast between tongue base & post. pharyngeal wall Pharyngeal Residue: Collection of residue within or on pharyngeal structures Esophageal Phase Esophageal Clearance: Esophageal retention w/ retrograde flow through pharyngoesophageal seg Diagnosis/Impression Diagnosis: Pharyngoesophageal dysphagia R13.14 Impression: The oral phase is primarily marked by... -Decreased bolus control with >1/2 of the bolus spilling posteriorly to the pyriforms prior to swallow onset. -Collection of oral residue after the swallow, which was seen spilling to the laryngeal vestibule on a subsequent swallow with thin liquids via straw and resulted in SILENT aspiration. The pharyngeal phase is primarily marked by... -Decreased airway closure during the swallow due to partial anterior hyoid excursion and decreased laryngeal elevation. -Decreased tongue base retraction, decreased UES opening/duration, and diminished pharyngeal stripping wave with resulting mild pharyngeal residues after the swallow. -SILENT aspiration of thin liquids by straw. Laryngeal penetration observed with a large single sip of thin liquids by cup, which did not reliably eject from the laryngeal vestibule after the swallow. Use of effortful swallow with large sips was most effective in decreasing aspiration during the swallow. Use of small sips was effective in decreasing risk for aspiration. The esophageal phase is primarily marked by... -Large pouch-like collection of barium found throughout the study (esophageal screens of thin, pudding, and cookie) in the upper esophagus. Upon review of images with radiologist, Dr. 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 -Retrograde flow of contrast seen flowing through the upper esophageal sphincter and into the pharynx. Figure 1. Esophageal screen of pudding revealing large Zenker's diverticulum. Recommendations Diet: Regular Textures (Easy to Chew textures - IDDSI Level 7) and Thin Liquids Comment: Extra sauce/gravy Compensatory Strategies: Small Bites, Small Sips (If patient does consume a large sip, use an effortful swallow), Slow Rate, Alternate bites/solids and sips/liquids (1:1 ratio), Sitting upright and Remain sitting upright for 30 minutes after PO intake (60 min after a meal) Recommend Repeat Modified Barium Swallow: TBD Need for Skilled Speech Therapy Services: Yes Comment: -Train the patient in use of strategies to decrease risk for aspiration. -Ongoing assessment of diet tolerance of recommended textures. -Train the patient oropharyngeal exercise program to improve airway closure and swallow onset (Effortful breath hold and re-swallow, DONNELL Jackson). Recommended Referrals: ENT Consult (Recommend ENT as soon as possible to address large Zenker's diverticulum) Education Completed: 1. Described result of evaluation. and 2. Pt understands evaluation & agrees with goals and treatment plan. Status Active ST Patient: Active Contact Information [facility] Speech Therapy:: Aracelis Barboza M.A. [employer]-MACHINE BANDER AND CELLOPHANER? Speech-Language Pathologist?? [facility] [address]?? [place] [address]?? [email or web address]?? [phone]?? 02/02/24 [id number] <Electronically signed by Aracelis Barboza M.A. CCC-MACHINE BANDER AND CELLOPHANER> Date/Time Aracelis Barboza M.A. CCC-MACHINE BANDER AND CELLOPHANER Co-Signature Required for all Medicare patients Date/Time Co-Signature CC: ~
--- NOTE | 2024-02-19 19:56 | HP.SP.EVAL ---
Visit History Visit Info Date of Eval: 02/19/24 Visit: 1 Digital Media Representative: LIZ History Attending Doctor: Referring Doctor: Reason for Referral: DYSPHAGIA/RX HERE Medical Diagnosis: oropharyngeal dysphagia Previous speech therapy: Yes Results: Jourdan is a 73 year old male who was seen at for a swallowing evaluation. Pt was referred for speech therapy to address Pharyngoesophageal dysphagia after his MBSS. Pt previous had an MBSS on Dec 2020 and he had 2nd MBSS on February 01. Other Relevant Medical History/Diagnoses/Surgery: Also was seen by the ENT & has a scheduled appointment for gaso (april 05). 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 Medications related to this diagnosis: alcoholic beverages: x1-2 a day. Smoking Status: Never smoker Diagnosis Diagnosis: Pharyngoesophageal dysphagia Pain Is pain an issue with your current prescribed condition?: No Personal Preferred language: Sami Patient Allergies Allergies Allergies: Allergies grass pollen Allergy (Verified 09/05/23 09:59) Other Sneezing, nasal congestion tree and shrub pollen Allergy (Verified 09/05/23 09:59) Other Sneezing, nasal congestion Objective Dysphagia Swallowing Impairment Contributing Factors to Swallowing Impairment: Delayed Swallow Initiation, Reduced Laryngeal Excursion and Other Other: Zenker's Diverticulum Impact Impact on Safety & Functioning: Risk for Aspiration Recommendations Modified Barium Swallow/Cookie Swallow Recommended: No Swallowing Treatment: Yes Diet Texture Recommendations Solids: Regular (Level 7) Liquids: Thin (Level 0) Safety Saftey Precautions/Swallowing Recommendations (Check all that Apply): Reduce Distractions, Upright Position at Least 30 Minutes After Meals, Small Sips & Bites when Eating, No Straw, Multiple Swallows and Alternate Liquids & Solids Other: *upright 60 mins Pt denies a hx of GERD/LPR and denies s/s of GERD Results Swallowing Within Normal Limits: No Swallowing Diagnosis: Pharyngoesophageal Phase Dysphagia (R13.14) Modified Barium Results Hx If Applicable Enter into a NOTE MBS Report Entered: Yes MBS Results (from prior exam): 02/19/24 19:37 Speech Therapy by Aracelis Gipson [facility] Speech Pathology [address] [place] [address] Modified Barium Swallow Study MR#: [id number] Acct: [id number] Name: JUAN JOSE BLACKWOOD Rep #: [id number] : 1950 73 From: Aracelis Barboza M.A., [facility]-PROFESSOR OF SPANISH Modified Barium Swallow Patient Information Study Date: 02/02/24 Study Time: 13:00 Direct Billable Minutes: 121 Total Minutes procedure & reportin Diagnosis: Dysphagia R13.10 Referring Physician: Marshall Herzog Reason for Referral: Objectively assess swallow function, assess risk for aspiration, and determine recommendations for least restrictive diet textures and compensatory strategies to improve safety of swallow. Medical History: The patient reported history of diverticulum in his esophagus with no past surgical intervention. He has followed with an ENT regarding the diverticulum and seasonal allergies. He reports worsening swallowing difficulty and sensation of phlegm in his throat since October of 2023, as well as increased coughing noticed especially after he eats. He was referred for MBSS to assess swallow function and aspiration risk. Current Diet Ordered: Regular textures / Thin liquids Dentition: WNL Mental Status: WNL Respiratory Status: Oxygenating on Room Air Penetration-Aspiration Scale Penetration-Aspiration Scale: OBJECTIVE ASSESSMENT OF SWALLOW FUNCTION (QUANTITATIVE ? PER TRIAL): PENETRATION / ASPIRATION SCALE ([place]): 1 = does not enter airway 2 = enters airway/above vocal folds/ejected 3 = enters airway/above vocal folds/not ejected 4 = enters airway/contacts vocal folds/ejected 5 = enters airway/contacts vocal folds/not ejected 6 = enters airway/below vocal folds/ejected 7 = enters airway/below vocal folds/not ejected despite effort 8 = enters airway/below vocal folds/no effort VIDEOFLOROSCOPIC SCALE SCORE ([place]): Grade I = aspiration of material that has penetrated into the laryngeal vestibule, intact cough reflex Grade II = aspiration < 10 % of the bolus, intact cough reflex Grade III = aspiration of < 10 % of the bolus, reduced cough reflex or aspiration of > 10 % of the bolus, intact cough reflex Grade IV = aspiration of > 10 % of the bolus, reduced cough reflexPenetration-Aspiration Scale Score Thin Liquid via teaspoon: Result: 1= does not enter airway Thin Liquid via large single sip: cup: Result: 5= enters airways/contacts vocal folds/not ejected Comment: Esophageal screen Pudding via teaspoon: Result: 1= does not enter airway Comment: Esophageal screen Thin Liquid via single sip: straw: Result: 8= enters airway/below vocal folds/no effort (large sip) Comment: Esophageal screen Thin Liquid via small single sip: cup: Result: 1= does not enter airway Thin Liquid via large single sip: cup Effortful swallow: Result: 1= does not enter airway Oral Phase Labial Seal: No Labial Escape Tongue Control During Bolus Hold: Posterior escape of greater than half of bolus Bolus Preparation/Mastication: Timely and efficient chewing and mashing Bolus Transport/Lingual Motion: Brisk tongue motion Oral Residue: Residue collection on oral structures Pharyngeal Phase Initiation of Pharyngeal Swallow: Bolus head in pyriforms Soft Palate Elevation: Trace column of contrast/air between soft palate and pharyngeal wall Laryngeal Elevation: Partial superior movement thyroid cart/partial apprx aryt-epig petiole Anterior Hyoid Excursion: Partial anterior movement Epiglottic Movement: Complete inversion Laryngeal Vestibule Closure at Height of Swallow: Incomplete; narrow column of air/contrast in laryngeal vestibule Pharyngeal Stripping Wave: Present - diminished Pharyngoesophageal Segment Opening: Parital distension and partial duration; parital obstruction of flow Tongue Base Retraction: Narrow column of contrast between tongue base & post. pharyngeal wall Pharyngeal Residue: Collection of residue within or on pharyngeal structures Esophageal Phase Esophageal Clearance: Esophageal retention w/ retrograde flow through pharyngoesophageal seg Diagnosis/Impression Diagnosis: Pharyngoesophageal dysphagia R13.14 Impression: The oral phase is primarily marked by... -Decreased bolus control with >1/2 of the bolus spilling posteriorly to the pyriforms prior to swallow onset. -Collection of oral residue after the swallow, which was seen spilling to the laryngeal vestibule on a subsequent swallow with thin liquids via straw and resulted in SILENT aspiration. The pharyngeal phase is primarily marked by... -Decreased airway closure during the swallow due to partial anterior hyoid excursion and decreased laryngeal elevation. -Decreased tongue base retraction, decreased UES opening/duration, and diminished pharyngeal stripping wave with resulting mild pharyngeal residues after the swallow. -SILENT aspiration of thin liquids by straw. Laryngeal penetration observed with a large single sip of thin liquids by cup, which did not reliably eject from the laryngeal vestibule after the swallow. Use of effortful swallow with large sips was most effective in decreasing aspiration during the swallow. Use of small sips was effective in decreasing risk for aspiration. The esophageal phase is primarily marked by... -Large pouch-like collection of barium found throughout the study (esophageal screens of thin, pudding, and cookie) in the upper esophagus. Upon review of images with radiologist, Dr. 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 -Retrograde flow of contrast seen flowing through the upper esophageal sphincter and into the pharynx. Figure 1. Esophageal screen of pudding revealing large Zenker's diverticulum. Recommendations Diet: Regular Textures (Easy to Chew textures - IDDSI Level 7) and Thin Liquids Comment: Extra sauce/gravy Compensatory Strategies: Small Bites, Small Sips (If patient does consume a large sip, use an effortful swallow), Slow Rate, Alternate bites/solids and sips/liquids (1:1 ratio), Sitting upright and Remain sitting upright for 30 minutes after PO intake (60 min after a meal) Recommend Repeat Modified Barium Swallow: TBD Need for Skilled Speech Therapy Services: Yes Comment: -Train the patient in use of strategies to decrease risk for aspiration. -Ongoing assessment of diet tolerance of recommended textures. -Train the patient oropharyngeal exercise program to improve airway closure and swallow onset (Effortful breath hold and re-swallow, DONNELL Jackson). Recommended Referrals: ENT Consult (Recommend ENT as soon as possible to address large Zenker's diverticulum) Education Completed: 1. Described result of evaluation. and 2. Pt understands evaluation & agrees with goals and treatment plan. Status Active ST Patient: Active Contact Information [facility] Speech Therapy:: Aracelis Barboza M.A. CCC-PROFESSOR OF SPANISH? Speech-Language Pathologist?? [id number]?? [place] [address]?? [email or web address]?? [phone]?? 02/02/24 [id number] <Electronically signed by Aracelis Barboza M.A. CCC-PROFESSOR OF SPANISH> Date/Time Aracelis Barboza M.A. CCC-PROFESSOR OF SPANISH Co-Signature Required for all Medicare patients Date/Time Co-Signature CC: ~ Initialized on 02/19/24 19:37 - END OF NOTE Swallowing Performance Scale Swallowing Performance Scale Swallowing Performance Scale Result: 3 Mild Reference: Neuro-QoL instrument Radiation Oncology Patient Other Other Education: -: Reviewed MBSS, compensatory strategies and recommended pharyngeal exercises. Plan Plan Plan: Will rx Pt for skilled outpatient tx to address deficits in pharyngeal-esophageal dysphagia. Pt would benefit from training and education re: diet tolerance checks, compensatory strategies and swallowing exercises to aid in pharyngeal strengthening. Without skilled intervention, Pt is at risk for consuming a restrictive diet putting her at risk for aspiration pneumonia and atrophy of laryngeal musculature Recommendations Treatment Warranted: Yes Treatment Warranted: Dysphagia Comment: MBS or FEES recommended if status changes and/or new s/s of aspiration occurs Progress Prognosis: Excellent Frequency Frequency: Every Other Week Duration: 3 Months Goals that are Established Determination:: Goals will be added/modified as deemed necessary and appropriate. Therapy will be discontinued when results of re-evaluation indicate therapy is no longer needed or lack of progress has been documented. Goal #1-5 Goal #1: Pt will complete oropharyngeal exercises for 5-10 reps, 2-3x/day independently to improve tongue base retraction, PES opening/distention, and hyolaryngeal elevation and excursion as measured by pt reports over 2 sessions. Goal #2: Pt will utilize compensatory strategies (re: small sips + bites, slow rate, alt. sips & bites, minimized distractions, sitting upright for 60 minutes after meal and no straws) at home I during 2 sessions as measured by pt reports over 2 sessions. Education Patient has Indicated that the Following Identified Educational Needs: None The Patient has indicated that they have no educational or learning abilities that may effect their care.: Yes Patient Instruction Patient Education: Diagnosis, Treatment Plan, Goals, Safety Precautions, Diet Level and Home Exercise Program Person Taught: Patient Teaching Method: Discussion, Demonstration, Handout and Teach back Response to teaching: Verbalize understanding
== END 2024-03-04 19:00 | disposition home or self-care (01) ==
LOC: SP 15:00
PROVIDERS: PCP Family Medicine; Referring Provider Family Medicine; Visit Provider Family Medicine
DX: R13.10 Dysphagia, unspecified (principal)
CPT/HCPCS: 92526; 92610

== ENCOUNTER 2024-12-31 22:34 | Emergency (ER) | payer MEDICARE, SELFPAY ==
[2024-12-31 22:35] VITALS: BP 148/58; PULSE 76; RESP 20; TEMP 36.8; O2SAT 96; BMI 24.1
[2024-12-31] MEDS: dexAMETHasone 10 MG/ML Vial PO.IVFORM (23:20)
--- NOTE | 2024-12-31 23:25 | RAD_ITS ---
PROCEDURE: CHEST PA AND LATERAL REASON FOR EXAM: Cough TECHNIQUE: Frontal and lateral views of the chest. COMPARISON: None. FINDINGS: An airspace opacity is present in the right lower lobe. No pleural effusion or pneumothorax. The cardiomediastinal silhouette is unremarkable. No acute osseous or soft tissue abnormality. RAD/Chest PA and Lateral IMPRESSION: Right lower lobe pneumonia. Reading Location: [facility]
--- NOTE | 2025-01-01 | EDS_ITS ---
HPI History of Present Illness Chief Complaint: Cough Informant: patient and spouse/S.O. Narrative Narrative: Patient is a 74-year-old male with past medical history of BPH. He reports roughly 7 to 10 days ago both him and his became sick with congestion jessica inage and cough. They saw their physician and had a COVID influenza and RSV swab obtained and they were influenza positive. Patient reports that his has gotten over the illness but he still has a productive cough that seems worse than the initial onset of the infection. Secondary to the persistent nature of his symptoms compared to his and his worsening symptoms he has concern for a secondary infection and therefore comes in for evaluation. [facility] Medical History Wears glasses Prostate disease Seasonal allergies Non-smoker Home Medications ?Medication ?Instructions ?Recorded ?Last Taken ?Type loratadine 10 mg tablet (Allergy 10 mg PO DAILY Unknown History Relief (loratadine)) albuterol sulfate 90 mcg/actuation 1 puff inhalation T ID 12/31/24 Unknown History aerosol inhaler azelastine 137 mcg (0.1 %) nasal 2 spray intranasal BI D #30 mL 01/01/25 Unknown Rx spray codeine 10 mg-guaifenesin 100 mg/5 10 ml PO 4X/DAY PRN cough 7 days 01/01/25 Unknown Rx mL oral liquid #280 mL
--- NOTE | 2025-01-01 | EX.ED.DYSGE1 ---
HPI History of Present Illness Chief Complaint: Cough Informant: patient and spouse/S.O. Narrative Narrative: Patient is a 74-year-old male with past medical history of BPH. He reports roughly 7 to 10 days ago both him and his became sick with congestion drainage and cough. They saw their physician and had a COVID influenza and RSV swab obtained and they were influenza positive. Patient reports that his has gotten over the illness but he still has a productive cough that seems worse than the initial onset of the infection. Secondary to the persistent nature of his symptoms compared to his and his worsening symptoms he has concern for a secondary infection and therefore comes in for evaluation. [facility] Medical History Wears glasses Prostate disease Seasonal allergies Non-smoker Home Medications ?Medication ?Instructions ?Recorded ?Last Taken ?Type loratadine 10 mg tablet (Allergy 10 mg PO DAILY 09/05/23 Unknown History Relief (loratadine)) albuterol sulfate 90 mcg/actuation 1 puff inhalation TID 12/31/24 Unknown History aerosol inhaler azelastine 137 mcg (0.1 %) nasal 2 spray intranasal BID #30 mL 01/01/25 Unknown Rx spray codeine 10 mg-guaifenesin 100 mg/5 10 ml PO 4X/DAY PRN cough 7 days 01/01/25 Unknown Rx mL oral liquid #280 mL doxycycline monohydrate 100 mg 100 mg PO BID 10 days #20 CAPSULES 01/01/25 Unknown Rx capsule prednisone 20 mg tablet 20 mg PO DAILY 5 days #5 tabs 01/01/25 Unknown Rx Allergy/AdvReac Type Severity Reaction Status Date / Time grass pollen Allergy Other Verified 12/31/24 22:35 tree and shrub pollen Allergy Other Verified 12/31/24 22:35 Family History (Updated 09/05/23 @ 10:00 by Marissa Elias) Father Dementia Surgical History H/O transurethral resection of prostate Hx of colonoscopy Social History (Updated 09/05/23 @ 10:01 by Marissa Elias) Smoking Status: Never smoker alcohol intake: current alcohol intake frequency: 0-2 drinks per day Alcohol type: wine ROS ROS ED Constitutional Constitutional ED: Denies chills or fever(s) ENT ENT ED: Reports rhinorrhea and sore throat Cardiovascular Cardiovascular: Denies chest pain Respiratory/Chest Respiratory/Chest: Reports cough and dyspnea Gastrointestinal Gastrointestinal: Denies abdominal pain, diarrhea, nausea or vomiting Genitourinary Genitourinary ED: Denies dysuria Musculoskeletal Musculoskeletal: Reports myalgias Integumentary Denies rash Neurologic Neurologic: Reports headache(s) Hematologic/Lymphatic Hematologic/Lymphatic: Denies easy bleeding or easy bruising Allergic/Immunologic Allergic/Immunologic ED: Denies mouth swelling, tongue swelling or urticaria EXAM Physical Exam Const Vital Signs: 12/31/24 22:35 12/31/24 23:20 01/01/25 00:16 Temperature 98.2 F 98.9 F Temperature Source Oral Pulse Rate 76 76 Respiratory Rate 20 H 16 Respiratory Effort Normal Respiratory Depth Normal Respiratory Pattern Normal Blood Pressure 148/58 H 146/86 H Blood Pressure Mean 88 106 Pulse Ox 96 98 Oxygen Delivery Method Room Air Room Air Positive well nourished and well developed General Appearance ED: well developed and pallor HEENT HEENT Narrative: No tongue or lip swelling no oral lesions no airway edema or compromise There is cobblestoning noted in the posterior pharynx consistent with sinus drainage without findings to suggest secondary infection Nasal mucosa is hyperemic and boggy with enlarged inferior nasal turbinates Eyes PERRL and EOMs intact bilaterally General Eye ED: Negative for scleral icterus Neck supple and no JVD Chest Wall palpation of chest normal Resp normal respiratory effort and clear to auscultation bilaterally Resp Narrative: Breath sounds are diminished throughout but overall clear to auscultation without signs of respiratory distress Cardio regular rate and regular rhythm Extremity normal to inspection Extremity Narrative: No asymmetric edema no pitting edema negative Homans' sign bilaterally Neuro oriented x3, CN's II-XII intact bilaterally and no sensory deficits noted Sensorium / Orientation: alert Motor Exam: strength 5/5 throughout Psych mental status grossly normal Skin no rashes or lesions noted General Skin Exam: jaundice and pallor MDM MDM MDM Narrative Medical decision making narrative: Patient arrived to the ER mildly hypertensive but otherwise with stable vitals. He has known influenza A but as he reports he has had the illness for approximately 10 days and cough and congestion are still present and slightly worsening there is concern for a secondary lung infection such as pneumonia or pneumothorax. Secondary to this a chest x-ray was obtained. X-ray did show findings concerning for right lower lobe pneumonia. As he is flu a positive this very well could be viral in nature but as she reports his symptoms have been present for 10 days there is also potential that this is a secondary bacterial infection that he obtained after being immunosuppressed from the influenza. Therefore I feel the safest option is oral antibiotics. As he is afebrile and in no respiratory distress and not hypoxic there is no need for laboratory studies and admission. Plan of care was discussed with patient and and they are agreeable to it and therefore will be discharged home at this time with antibiotics for secondary pneumonia History & Record Review Discussion w/independent historian: Patient and Significant other Radiography Diagnostic Testing: Clinical Impression(s) from Imaging Studies Chest X-Ray 12/31/24 23:25 IMPRESSION: Right lower lobe pneumonia. Reading Location: [facility] Chest x-ray as interpreted by the emergency medicine physician reveals infiltrate in the right lower lobe Discharge Plan Triage Chief Complaint: Cough ED Provider: Perry Mcgarry Dx/Rx/DC Orders Clinical Impression: Right lower lobe pneumonia, BPH (benign prostatic hyperplasia) Instructions: ED Pneumonia (Adult) Prescriptions: New doxycycline monohydrate 100 mg capsule 100 mg PO BID 10 Days Qty: 20 0RF prednisone 20 mg tablet 20 mg PO DAILY 5 Days Qty: 5 0RF azelastine 137 mcg (0.1 %) spray,non-aerosol 2 spray intranasal BID Qty: 30 0RF Rx Instructions: administer into each nostril codeine-guaifenesin 10-100 mg/5 mL liquid 10 ml PO 4X/DAY PRN (Reason: cough) 7 Days Qty: 280 0RF No Action loratadine [Allergy Relief (loratadine)] 10 mg tablet 10 mg PO DAILY albuterol sulfate 90 mcg/actuation HFA aerosol inhaler 1 puff INHALATION TID Patient Comments: [NO ORIGINAL SIG] Primary Care Provider: Marshall Herzog Referrals: Marshall Herzog MD [Primary Care Provider] - Activity Restrictions/Additional Instructions: Your x-ray showed right lower lobe pneumonia. Based on your prolonged symptoms from influenza I do feel this is most likely a secondary bacterial infection and therefore take the doxycycline as directed. Follow-up your family doctor for repeat evaluation and return to the ER should you have any further concerns or worsening of symptoms Print Language: Greek Disposition Disposition: Home, Self Care Discharge Date/Time: 01/01/25 00:17
[2025-01-01] MEDS: Doxycycline 100 MG CAPSULE PO (00:06)
[2025-01-01 00:16] VITALS: BP 146/86; PULSE 76; RESP 16; TEMP 37.2; O2SAT 98
== END 2025-01-01 00:17 | disposition home or self-care (01) ==
PROVIDERS: Emergency Provider Emergency Medicine; PCP Family Medicine; Visit Provider Emergency Medicine
DX: J11.00 Influenza due to unidentified influenza virus with unspecified type of pneumonia (principal); N40.0 Benign prostatic hyperplasia without lower urinary tract symptoms; R17 Unspecified jaundice
CPT/HCPCS: 71046; 99283

== ENCOUNTER → 2025-01-31 | Outpatient (CLI) | payer MEDICARE, SELFPAY ==
[2025-01-31 13:10] LABS: PSA,Total - Annual Screen 1.14 ng/mL (0.02-4.00)
== END | disposition home or self-care (01) ==
LOC: LAB 09:27
PROVIDERS: PCP Family Medicine; Referring Provider Nurse Practitioner; Visit Provider Nurse Practitioner
DX: Z12.5 Encounter for screening for malignant neoplasm of prostate (principal)
CPT/HCPCS: 36415; 84153; G0103